=== PATIENT | female | born 1960 | race Caucasian/White ===

== ENCOUNTER → 2022-03-13 | Outpatient (REF) | payer OTHER | LOC: M LAB REF 09:57 | PROVIDERS: ATTEND Physician Assistant | DX: Z12.4 Encounter for screening for malignant neoplasm of cervix (principal); R87.610 Atypical squamous cells of undetermined significance on cytologic smear of cervix (ASC-US); R87.611 Atypical squamous cells cannot exclude high grade squamous intraepithelial lesion on cytologic smear of cervix (ASC-H) | CPT/HCPCS: 87624; G0123 ==

== ENCOUNTER → 2022-09-11 | Outpatient (CLI) | payer BC, OTHER | LOC: M WHC 09:42 | PROVIDERS: ATTEND Physician Assistant | DX: Z12.31 Encounter for screening mammogram for malignant neoplasm of breast (principal) ==

== ENCOUNTER → 2024-06-09 | Outpatient (CLI) | payer BC, OTHER | LOC: M WHC 14:57 | PROVIDERS: ATTEND Physician Assistant | DX: Z12.31 Encounter for screening mammogram for malignant neoplasm of breast (principal) ==